=== PATIENT | female | born 1970 | race Caucasian/White ===

== ENCOUNTER 2016-10-29 05:34 | Inpatient (IN) | payer OTHER ==
[2016-10-17 13:42] VITALS: BMI 33.0
--- NOTE | 2016-10-17 14:15 | PAT Medication Instructions ---
Service Date October 17, 2016. Current Home Medication List Cholecalciferol (Vitamin D3), 1 TAB PO QAM Cyanocobalamin (Vitamin B12 500MCG), 1,000 MCG PO BID Furosemide (Lasix), 20 MG PO QAM Labetalol (Normodyne), 300 MG PO QAM Medication Instructions For Your Scheduled Surgery - Hold the following medications the morning of surgery: Furosemide (Lasix), 20 MG PO QAM Cholecalciferol (Vitamin D3), 1 TAB PO QAM Cyanocobalamin (Vitamin B12 500MCG), 1,000 MCG PO BID - Take the following medications the morning of surgery with a sip of water OTHERWISE NOTHING TO EAT OR DRINK AFTER MIDNIGHT: Labetalol (Normodyne), 300 MG PO QAM - Take the following medications as scheduled the night before surgery: Cyanocobalamin (Vitamin B12 500MCG), 1,000 MCG PO BID If you have any questions please call us at [phone] or [phone] or [phone]
--- NOTE | 2016-10-17 15:04 | DIAGNOSTIC IMAGING REPORT ---
CHEST PREADMISSION(PA/LAT) CLINICAL HISTORY: Preoperative chest COMPARISON STUDY: No previous studies for comparison. FINDINGS: The heart is at the upper limits of normal in size. There is no failure. There is no focal pulmonary consolidation. No pleural effusions are visualized.[ IMPRESSION: No active disease in the chest. Electronically signed by: Hola Hayden M.D. 10/17/2016 3:02 PM Dictated Date/Time: 10/17/2016 3:02 PM
[2016-10-17 15:54] LABS: URINE APPEARANCE CLEAR (CLEAR); URINE BILIRUBIN NEG (NEG); URINE COLOR YELLOW; URINE NITRITE NEG (NEG); URINE SPECIFIC GRAVITY 1.024 (1.000-1.030); UROBILINOGEN NEG (NEG)
[2016-10-17 16:05] LABS: MANUAL MICROSCOPIC REQUIRED? NO; REVIEW REQ? NO
[2016-10-29] VITALS (15 sets, daily range): BP systolic 131–167; BP diastolic 78–95; PULSE 74–89; TEMP 36.7–37.1; O2SAT 95–98; Ht 167.6 cm; Wt 94.4 kg
[~2016-10-29] VITALS: Ht 167.6 cm; Wt 94.4 kg
[~2016-10-29 05:34] MED LIST: CHOL1000 PO; CYAN500T13 PO; FURO-85 PO; LABE300T PO
[2016-10-29] MEDS ORDERED: LACTATED RINGER'S 1000ML 1,000 ML IV SCH (06:00)
[2016-10-29] MEDS ORDERED: LORA-741 PO (06:00)
[2016-10-29] MEDS ORDERED: CEFAZOLIN 2000 MG/60 ML D5W IV SCH (06:00)
[2016-10-29] MEDS ORDERED: MIDAZOLAM HCL 1 MG/ML 2ML VIAL ONE (06:42)
[2016-10-29] MEDS ORDERED: FENTANYL CITRATE INJ 50 MCG/1 ML 2 ML VIAL ONE ×4 (06:43→09:21)
[2016-10-29] MEDS ORDERED: SODIUM CHLORIDE 0.9% PF 50 ML VIAL ONE (07:00)
[2016-10-29] MEDS ORDERED: BACITRACIN 50000 UNIT VIAL ONE (07:00)
--- NOTE | 2016-10-29 07:20 | History & Physical Bridge Note ---
H&P Re-Evaluation Bridge Note: I have examined the patient, reviewed the History & Physical and in the interval since the performance of the History & Physical I have noted the following changes of clinical significance: No changes noted
--- NOTE | 2016-10-29 07:28 | History and Physical ---
History & Physical Date October 29, 2016. Chief Complaint neck and arm pain History of Present Illness The patient is a 46 year old female with complaints of Additional History Hepatic Disease: No Endocrine Disorder: No Kidney Disease: No Hypertension: No Heart Disease: No Bleeding Tendencies: No Infectious Diseases: No Allergies Coded Allergies: Hydrochlorothiazide (Verified Allergy, Unknown, UNKNOWN, 10/29/16) Lisinopril (Unverified Allergy, Unknown, UNKNOWN, 10/29/16) Home Medications Scheduled Cholecalciferol (Vitamin D3), 1 TAB PO QAM Cyanocobalamin (Vitamin B12 500MCG), 1,000 MCG PO BID Furosemide (Lasix), 20 MG PO QAM Labetalol (Normodyne), 300 MG PO QAM Lorazepam (Ativan), Unknown Dose PO HS Physical Examination Skin: warm/dry, no rash Eyes: normal inspection, EOMI, sclerae normal ENT: normal ENT inspection, pharynx normal Head: normocephalic, atraumatic Neck: supple, no adenopathy, trachea midline Respiratory/Chest: lungs clear, normal breath sounds, no respiratory distress Cardiovascular: regular rate, rhythm, no edema, no murmur Abdomen / GI: normal bowel sounds, non tender Back: normal inspection Extremities: normal inspection, normal range of motion Neurologic/Psych: no motor/sensory deficits, alert, normal reflexes, oriented x 3 Diagnosis cervical stenosis Plan of Treatment acdf C45 corpectomy C6 with fusion
[2016-10-29] MEDS ORDERED: HYDROmorphone INJ 2 MG/ML SYR/VIAL ONE ×2 (07:53→09:51)
[2016-10-29] MEDS ORDERED: ONDANSETRON INJ 2 MG/ML 2 ML VIAL IV PRN (08:00)
[2016-10-29] MEDS ORDERED: ATROPINE SULFATE 0.1 MG/ML 5ML SYR IV PRN (08:00)
[2016-10-29] MEDS ORDERED: EpHEDrine SULFATE INJ 50 MG/ML AMP IV PRN (08:00)
[2016-10-29] MEDS ORDERED: DEXAMETHASONE SOD INJ 4 MG/ML VIAL ONE (08:13)
[2016-10-29] MEDS ORDERED: ONDANSETRON INJ 2 MG/ML 2 ML VIAL ONE ×2 (08:13→10:08)
[2016-10-29] MEDS ORDERED: LIDOCAINE HCL 2% 2 ML VIAL (20MG/ML) ONE (08:13)
[2016-10-29] MEDS ORDERED: PROPOFOL IV EMULSION 10 MG/ML 20 ML VIAL IV ONE (08:13)
[2016-10-29] MEDS ORDERED: ROCURONIUM BROMIDE 10 MG/ML 5 ML VIAL ONE (08:13)
[2016-10-29] MEDS ORDERED: FLOSEAL HEMOSTATIC MATRIX 5ML TOP ONE (09:39)
[2016-10-29] MEDS ORDERED: BACITRACIN 50,000 UNITS IR ONE (09:41)
--- NOTE | 2016-10-29 09:50 | [facility] Post Operative Brief Note ---
Immediate Operative Summary Operative Date October 29, 2016. Pre-Operative Diagnosis Cervical Stenosis Post-Operative Diagnosis Cervical Stenosis Procedure(s) Performed C4-C5 Anterior Cervical Discectomy and Fusion; Removal of Intervertebral Disc / Decompression; Placement of Prosthetic Spacer /Placement of Marbella Allograft; Anterior Plate and Screw Fixation; C6 Corpectomy Surgeon Dr[address] Aren Yip [employer] Mill[employer] Surgeon(s) Aracelis Sibley PA-C Estimated Blood Loss 20ml Findings stenosis Specimens None
[2016-10-29] MEDS ORDERED: LORAZEPAM 0.5 MG TAB PO PRN (10:00)
[2016-10-29] MEDS ORDERED: NALOXONE HCL 0.4 MG/1 ML VIAL/CARP IV PRN (10:00)
[2016-10-29] MEDS ORDERED: HYDROmorphone INJ 1 MG/ML SYR IV PRN (10:00)
[2016-10-29] MEDS ORDERED: DO NOT ADMINISTER PNEUMOCOCCAL VACCINE PRN ×2 (10:00)
[2016-10-29] MEDS ORDERED: DEXAMETHASONE INJ 8 MG in SYRINGE 0 ML IV PRN (10:00)
[2016-10-29] MEDS ORDERED: LORAZEPAM INJ 0.5 MG in SYRINGE 0.75 ML IV PRN (10:00)
[2016-10-29] MEDS ORDERED: DiphenhydrAMINE HCL 50 MG/ML VIAL IV PRN (10:00)
[2016-10-29] MEDS ORDERED: MAGNESIUM HYDROXIDE SUSP 30 ML UDC PO PRN (10:00)
[2016-10-29] MEDS ORDERED: DO NOT ADMINISTER FLU VACCINE PRN ×3 (10:00)
[2016-10-29] MEDS ORDERED: RACEPINEPHRINE 2.25% NEBU SOLN 0.5 ML VIAL INH PRN (10:00)
[2016-10-29] MEDS ORDERED: GLYCOPYRROLATE INJ 0.2 MG/ML VIAL ONE (10:08)
[2016-10-29] MEDS ORDERED: NEOSTIGMINE METHYLSULFATE 1 MG/ML 10ML VIAL ONE (10:08)
--- NOTE | 2016-10-29 10:11 | DIAGNOSTIC IMAGING REPORT ---
Cervical SPINE, INTRAOPERATIVE FLUOROSCOPY HISTORY: C4-C7 ACDF FLUOROSCOPY TIME: 15 seconds. FINDINGS: Intraoperative fluoroscopy was provided for the cervical spine. 2 fluoroscopic spot images were obtained. Anterior cervical discectomy and fusion from C4 through C7 with a C6 corpectomy. The hardware appears intact. IMPRESSION: Fluoroscopy provided for a ACDF C4-C7. Electronically signed by: Carroll Radford M.D. 10/29/2016 10:10 AM Dictated Date/Time: 10/29/2016 10:09 AM
[2016-10-29] MEDS: FENTANYL CITRATE INJ 50 MCG/1 ML 2 ML VIAL IV PRN ×4 (10:25→10:43)
--- NOTE | 2016-10-29 10:37 | OPERATIVE REPORT ---
DATE OF OPERATION: 10/29/2016 PREOPERATIVE DIAGNOSIS: Cervical spinal stenosis with myeloradiculopathy. POSTOPERATIVE DIAGNOSIS: Same. PROCEDURES PERFORMED: 1. Anterior cervical corpectomy C6. 2. Anterior cervical discectomy C4-5 with bilateral foraminotomies. 3. Anterior cervical arthrodesis C4-5 and C5-7. 4. Placement of PEEK cage 7 mm in height at C4-5 and 23 mm in height at C5-7. 5. Placement of locally harvested morcellized autograft combined with Marbella bone grafting in the interbody cages. 6. Application of Huynh plate and screws from C4-C7. SURGEON: Dr. Aren Yip. EXTRUSION MANAGER: Aracelis Sibley PA-C. Due to the complex nature of the procedure, the entire surgery was performed with the syrup mixer assistant of ASHANTI Barragan. The physicians assistant, under direct supervision, was involved in the actual performance of all aspects of the surgical procedure including hemostasis, tissue retraction and incision, instrument management, patient positioning, and wound closure. ANESTHESIA: General. DISPOSITION: The patient awakened and taken to PACU in stable condition. HISTORY OF PATIENT'S PROBLEMS: A 46-year-old female that presents with above-mentioned diagnosis. After failing an extensive course of nonoperative care, elected to undergo the above-mentioned procedure. Risks, benefits, pros, cons, and alternatives were outlined in detail preoperatively. DESCRIPTION OF PROCEDURE: The patient was met with preoperatively, the case discussed and all questions were addressed. At that point, the patient was taken back to the operative suite and after undergoing successful general endotracheal intubation via department of anesthesia was placed in supine position on Stas table with head in [place] art department head. All bony prominences were well padded and the eyes were inspected to ensure there was no external pressure placed upon them. At this point, the anterior cervical spine was prepped and draped in normal sterile fashion. With the assistance of fluoroscopy, we identified the C5-6 disc space and a transverse incision was placed along the right anterior aspect of the cervical spine overlying this region. Sharp dissection with the assistance of bipolar cautery performed down to and exposing the anterior cervical spine from C4-C7. A self-retaining retractor was placed. I then performed a complete discectomy of C5-6 out to the uncovertebral joints bilaterally followed by C6-7. [place] distracting pins were placed in C5 and C7 to distract across the C6 vertebral body. A complete corpectomy of C6 was then performed including removal of all posterior annular fibers, longitudinal ligament and bilateral foraminotomies. Endplates were burred to subcortical bleeding bone and a 23 mm PEEK cage filled with Marbella bone grafting locally harvested morcellized autograft tapped into position. Distracting apparatus was removed and we proceeded to C4-5 and again a complete discectomy performed out to the uncovertebral joints bilaterally. [place] distracting pins again used to assist us in our visualization. I did remove all posterior annular fibers and performed bilateral foraminotomies. Endplates were burred to subcortical bleeding bone and a 7 mm PEEK cage filled with Marbella bone grafting and locally harvested morcellized autograft tapped into position. Distracting apparatus was removed. All anterior osteophytes burred to a smooth cortical surface and a Huynh plate and screws applied with the assistance of fluoroscopy. The incision was then copiously irrigated, explored to ensure there was no damage to surrounding structures or remaining bleeding. A 10 round ALLEGRA drain inserted and closed with 2-0 Vicryl in the fascia, 4-0 Monocryl for final skin closure. Steri-Strips and sterile dressing placed. The patient was awakened and taken to PACU in stable condition. I attest to the content of the Intraoperative Record and any orders documented therein. Any exceptio ns are noted below.
[2016-10-29] MEDS: HYDROmorphone INJ 1 MG/ML SYR IV PRN ×2 (10:48→10:53)
--- NOTE | 2016-10-29 11:24 | Anesthesiology Progress Note ---
Anesthesia Post Op Note Date & Time October 29, 2016 at 11:24 Vital Signs Pain Intensity: 4 Vital Signs Past 12 Hours Date Time Temp Pulse Resp B/P Pulse Ox O2 Delivery O2 Flow Rate FiO2 10/29/16 11:20 77 22 141/88 96 Nasal Cannula 2 10/29/16 11:10 36.4 79 20 145/92 97 Nasal Cannula 2 10/29/16 11:00 68 20 137/64 97 Nasal Cannula 2 10/29/16 10:50 64 21 140/73 97 Nasal Cannula 2 10/29/16 10:40 63 23 141/71 97 Nasal Cannula 3 10/29/16 10:30 64 24 160/76 97 Nasal Cannula 3 10/29/16 10:20 66 26 143/77 99 Mask 10 10/29/16 10:10 70 28 155/75 97 Mask 10 10/29/16 10:04 36.3 60 14 146/93 98 Mask 10 10/29/16 05:53 36.8 74 20 167/95 98 Room Air Notes Mental Status: alert / awake / arousable, participated in evaluation Pt Amnestic to Procedure: Yes Nausea / Vomiting: adequately controlled Pain: adequately controlled Airway Patency, RR, SpO2: stable & adequate BP & HR: stable & adequate Hydration State: stable & adequate Anesthetic Complications: no major complications apparent
[2016-10-29] MEDS ORDERED: SCOPOLAMINE 1.5 MG TDSY TD SCH (13:00)
[2016-10-29] MEDS: SODIUM CHLORIDE 0.9% 1000ML 1,000 ML IV SCH ×2 (13:26→22:20)
[2016-10-29] MEDS: ONDANSETRON INJ 2 MG/ML 2 ML VIAL IV PRN (13:27)
[2016-10-29] MEDS: DEXAMETHASONE INJ 6 MG in SYRINGE 0 ML IV SCH ×2 (15:57→23:26)
[2016-10-29] MEDS: CEFAZOLIN IV 2,000 MG in DEXTROSE 5% 50ML 50 ML IV SCH ×2 (15:59→23:26)
[2016-10-29] MEDS: CHECK SCOPOLAMINE PATCH PLACEMENT SCH ×2 (15:59→23:29)
[2016-10-29] MEDS: ACETAMINOPHEN IV 100 ML IV PRN (19:20)
[2016-10-29] MEDS: DOCUSATE SODIUM 100 MG CAP PO SCH (21:00)
[2016-10-29] MEDS: OXYCODONE HCL IR 5 MG TAB (IMMEDIATE RELEASE) PO PRN (23:19)
[2016-10-30] VITALS (11 sets, daily range): BP systolic 117–168; BP diastolic 75–82; PULSE 62–80; TEMP 36.5–37.1; O2SAT 94–97
[2016-10-30] MEDS: ACETAMINOPHEN IV 100 ML IV PRN (04:55)
[2016-10-30] MEDS: DEXAMETHASONE INJ 6 MG in SYRINGE 0 ML IV SCH (08:05)
[2016-10-30] MEDS: CEFAZOLIN IV 2,000 MG in DEXTROSE 5% 50ML 50 ML IV SCH (08:05)
[2016-10-30] MEDS: CHECK SCOPOLAMINE PATCH PLACEMENT SCH (08:09)
[2016-10-30] MEDS: DOCUSATE SODIUM 100 MG CAP PO SCH (08:42)
[2016-10-30] MEDS: ONDANSETRON INJ 2 MG/ML 2 ML VIAL IV PRN (08:49)
[2016-10-30] MEDS: OXYCODONE HCL IR 5 MG TAB (IMMEDIATE RELEASE) PO PRN (08:50)
[2016-10-30] MEDS ORDERED: RXC5 PO (09:44)
--- NOTE | 2016-10-30 09:45 | Discharge Instructions ---
Discharge Instructions Date of Service October 30, 2016. Admission Reason for Admission: Cervical Spinal Stenosis Discharge Discharge Diagnosis / Problem: stenosis Discharge Goals Goal(s): Improve function Activity Recommendations Activity Limitations: per Instructions/Follow-up section . Instructions / Follow-Up Instructions / Follow-Up ACTIVITY RECOMMENDATIONS: SELF CARE INSTRUCTIONS AFTER CERVICAL FUSIONS 1. No smoking. Smoking drastically decreases the chance of a solid fusion. 2. No bending, lifting more than 5 pounds, or twisting (roll like a log when turning in bed). 3. You may shower 3 days after surgery. Thoroughly dry wound. Do not soak in the tub. 4. Cervical collar: Must be worn at all times including sleeping. You may remove the brace only to bath, eat and if you are sitting in a recliner. 5. Please walk as much as you can for exercise. Gradually increase the distance that you walk as your endurance increases. SPECIAL CARE INSTRUCTIONS: VERY IMPORTANT TO READ AND REVIEW A. Do not take any anti-inflammatory medications (i.e. Indocin, Advil, Aspirin, Naprosyn, Aleve, Motrin, etc.) as these may inhibit the chance of a solid fusion. Tylenol is okay to take. B. Your surgical incision has been closed with a cosmetic suture under the skin that will dissolve in about 6 weeks. In 14 days, you can use a pair of clean scissors and cut the suture that is left outside of the skin at the ends of your incision. C. Complications are uncommon, but please contact us if you have any signs or symptoms of: 1. wound infection (fever higher than 102.5 degrees F, redness, separation of wound, drainage, or increasing pain from the incision) 2. blood clots in legs (pain, swelling, redness and warmth in legs) 3. urinary tract infection (fever higher than 102.5 degrees, burning upon urination or increased frequency of urination) 4. nerve problems (inability to walk on your toes or heels, numbness, loss of bowel or bladder control) 5. any other symptoms that concern you. D. Please call the office at if you have any concerns or questions about your operation or recovery. MANAGING PAIN AFTER SPINAL SURGERY 1. Narcotic medication is intended for short-term use and will be provided for surgical pain. Surgical pain usually lasts for a period of 4-6 weeks. Narcotic medication includes Percocet, Vicodin, Darvocet, Tylenol #3 or Lortab. 2. Longer-term pain is more appropriately treated with non-narcotic medication such as Tylenol ES. 3. Muscle spasm is not appropriately treated with narcotics. Muscle relaxers such as Soma, Flexeril or Skelaxin can be used along with Tylenol ES. 4. Remember that we all live with some "aches and pains". This is not unusual or uncommon after an injury or as we get older. 5. We will provide appropriate medication within the normal guidelines of their prescribed use. We will also be very cautious and aware of potential abuse and extended duration of patients' medication needs. 6. Please allow 2-3 days to process refills. Prescriptions will not be mailed but must be picked up at the office. FOLLOW UP VISIT: Keep your scheduled follow-up appointment. Any questions, please call the office at . Current Hospital Diet Patient's current hospital diet: Clear Liquid Diet Discharge Diet Recommended Diet: Regular Diet Procedures Procedures Performed: C4-C5 Anterior Cervical Discectomy and Fusion; Removal of Intervertebral Disc / Decompression; Placement of Prosthetic Spacer /Placement of Marbella Allograft; Anterior Plate and Screw Fixation; C6 Corpectomy Pending Studies Studies pending at discharge: no Medical Emergencies . Who to Call and When: Medical Emergencies: If at any time you feel your situation is an emergency, please call 911 immediately. . Non-Emergent Contact Non-Emergency issues call your: Primary Care Provider . "Provider Documentation" section prepared by Aren Yip. . VTE Core Measure Inpt VTE Proph given/why not?: Ivonne Mesa, SCD's
--- NOTE | 2016-10-30 10:35 | Anesthesiology Progress Note ---
Anesthesia Post Op Note Date & Time October 30, 2016 at 10:35 Vital Signs Pain Intensity: 8.0 Vital Signs Past 12 Hours Date Time Temp Pulse Resp B/P Pulse Ox O2 Delivery O2 Flow Rate FiO2 10/30/16 07:50 37.1 72 18 117/80 95 Room Air 10/30/16 07:37 Room Air 10/30/16 07:35 67 14 95 Room Air 10/30/16 06:45 36.7 71 18 128/75 96 Room Air 10/30/16 04:45 36.6 69 18 137/78 97 Humidified Oxygen CPAP 10/30/16 03:21 62 14 97 CPAP 2.0 10/30/16 02:45 36.5 76 18 130/79 96 Humidified Oxygen CPAP 10/30/16 00:45 36.5 76 16 139/79 94 Nasal Cannula Humidified Oxygen 10/29/16 23:20 Humidified Oxygen CPAP 10/29/16 23:20 89 14 97 Nasal Cannula 2.0 10/29/16 22:45 36.9 84 15 149/89 97 Nasal Cannula 2.0 Humidified Oxygen Notes Mental Status: alert / awake / arousable, participated in evaluation Pt Amnestic to Procedure: Yes Nausea / Vomiting: adequately controlled Pain: adequately controlled Airway Patency, RR, SpO2: stable & adequate BP & HR: stable & adequate Hydration State: stable & adequate Anesthetic Complications: no major complications apparent
--- NOTE | 2016-10-30 12:47 | DISCHARGE SUMMARY ---
DATE OF DISCHARGE: 10/30/2016. PRINCIPAL PREOPERATIVE DIAGNOSIS: Cervical spondylosis with myeloradiculopathy. HOSPITAL COURSE FOLLOWS: On 10/29/2016 patient underwent anterior cervical decompression and fusion, tolerated this well and taken to the orthopedic floor postoperatively. Postop day #1 arm symptoms were improved, swallowing well, no hoarseness. Subsequently discharged home. Discharge orders and instructions can be found on the chart for further review.
[2016-10-31] MEDS ORDERED: BISACODYL 5 MG TABEC PO PRN (06:00)
[2016-10-31] MEDS ORDERED: BISACODYL 10 MG SUPP PR PRN (06:00)
[2016-10-31] MEDS ORDERED: POLYETHYLENE (MIRALAX) 17 GM PACK PO SCH (09:00)
== END 2016-10-30 13:50 | disposition home or self-care (01) | DRG 472 ==
LOC: ENRESERVTM → ENRESERVDT → C.ACU 05:34 → C.3E 07:00
PROVIDERS: ADMIT Orthopaedic Surgery Orthopaedic Surgery of the Spine; ATTEND Orthopaedic Surgery Orthopaedic Surgery of the Spine
PROC: 0RG20A0 Fusion of 2 or more Cervical Vertebral Joints with Interbody Fusion Device, Anterior Approach, Anterior Column, Open Approach (ICD-10-PCS; principal; 2016-10-29 07:45)
PROC: 0RT30ZZ Resection of Cervical Vertebral Disc, Open Approach (ICD-10-PCS; principal; 2016-10-29 07:45)
PROC: 0RG2070 Fusion of 2 or more Cervical Vertebral Joints with Autologous Tissue Substitute, Anterior Approach, Anterior Column, Open Approach (ICD-10-PCS; principal; 2016-10-29 07:45)
DX: M48.02 Spinal stenosis, cervical region (principal); M47.12 Other spondylosis with myelopathy, cervical region; M47.22 Other spondylosis with radiculopathy, cervical region; I10 Essential (primary) hypertension; F17.200 Nicotine dependence, unspecified, uncomplicated; E66.9 Obesity, unspecified; G47.33 Obstructive sleep apnea (adult) (pediatric); Z68.33 Body mass index [BMI] 33.0-33.9, adult; Z99.89 Dependence on other enabling machines and devices; Z79.899 Other long term (current) drug therapy